=== PATIENT | female | born 1995 | race Caucasian/White ===

== ENCOUNTER 2021-09-09 11:32 | Outpatient (CLI) | payer OTHER | END 2021-09-10 15:22 | disposition home or self-care (01) | LOC: RAD 11:32 | PROVIDERS: ATTEND Orthopaedic Surgery | DX: M79.671 Pain in right foot (principal) ==

== ENCOUNTER 2023-07-14 18:04 | Emergency (ER) | payer OTHER ==
[~2023-07-14] VITALS: Ht 160 cm; Wt 49.9 kg
== END 2023-07-14 19:38 | disposition home or self-care (01) ==
LOC: ER 18:04
DX: S99.912A Unspecified injury of left ankle, initial encounter (principal); X58.XXXA Exposure to other specified factors, initial encounter; Y93.01 Activity, walking, marching and hiking; Y92.22 Religious institution as the place of occurrence of the external cause; Y99.9 Unspecified external cause status